=== PATIENT | male | born 1995 | race Two or more races ===

== ENCOUNTER 2017-07-24 19:37 | Emergency (ER) | payer BC ==
[~2017-07-24] VITALS: Ht 185.4 cm; Wt 99.9 kg
[2017-07-24] MEDS ORDERED: MOTRIN600 MG PO (21:21)
[2017-07-24 21:36] VITALS: BP 148/84
[2017-07-25] MEDS ORDERED: MOTRIN600 MG PO (22:49)
[2017-07-25] MEDS ORDERED: VALIUM2 MG PO (22:49)
== END 2017-07-24 21:36 | disposition home or self-care (01) ==
LOC: EME 19:37
DX: S50.812A Abrasion of left forearm, initial encounter (principal); R51 Headache; V43.52XA Car driver injured in collision with other type car in traffic accident, initial encounter; W22.11XA Striking against or struck by driver side automobile airbag, initial encounter; Y92.410 Unspecified street and highway as the place of occurrence of the external cause
CPT/HCPCS: 73090; 99281; 99284

== ENCOUNTER 2017-07-25 20:39 | Emergency (ER) | payer OTHER, BC ==
[~2017-07-25] VITALS: Ht 185.4 cm; Wt 100.2 kg
[~2017-07-25 20:39] MED LIST: MOTRIN600 MG PO
[2017-07-25] MEDS ORDERED: VALIUM2 MG PO (22:49)
[2017-07-25] MEDS ORDERED: MOTRIN600 MG PO (22:49)
[2017-07-25 23:16] VITALS: BP 119/84
== END 2017-07-25 23:34 | disposition home or self-care (01) ==
LOC: EME 20:39
DX: S06.0X0A Concussion without loss of consciousness, initial encounter (principal); S16.1XXA Strain of muscle, fascia and tendon at neck level, initial encounter; S46.912A Strain of unspecified muscle, fascia and tendon at shoulder and upper arm level, left arm, initial encounter; V49.40XA Driver injured in collision with unspecified motor vehicles in traffic accident, initial encounter; Y92.410 Unspecified street and highway as the place of occurrence of the external cause
CPT/HCPCS: 70450; 72125; 73030; 99281; 99283